=== PATIENT | female | born 1940 | race Caucasian/White ===

== ENCOUNTER → 2016-09-13 | Outpatient (CLI) | payer MEDICARE ==
[~2016-09-13] MED LIST: AZO PO; BAYE325T12 PO; BIMA01SOL OU; CALTTAB10 PO; CENTTAB PO; COUM2.5T11 PO; NAPR500T2 PO; PERCOCET PO; TYLE325T5 PO; VITA500C24 PO
--- NOTE | 2016-09-14 09:03 | REPMRS ---
Patient History The patient states she had a clinical breast exam in 2016. Patient is postmenopausal and has history of cancer in the right breast at age 45. Family history of endometrial cancer in mother at age 70 and breast cancer in maternal half sister. Took hormonal contraceptives for 8 years. Digital Mammo Screening Bilat: September 13, 2016 - Exam #: [id number] Bilateral CC and MLO view(s) were taken. Technologist: Maria Dolores Galicia, Technologist Prior study comparison: September 12, 2015, bilateral digital mammo screening bilat performed at [facility]. September 11, 2014, left breast diagnostic unilateral mammo performed at [facility]. September 10, 2013, bilateral bilat screen digital mammo, performed at [facility] ([facility]). FINDINGS: The breast tissue is almost entirely fat. There has been no change in the appearance of the left breast parenchyma in the interval since the prior examination. No mass, architectural distortion, or microcalcific cluster has developed. No suspicious finding. ASSESSMENT: BI-RADS/ACR category 2 mammogram. Benign finding(s). Recommendation Routine screening mammogram in 1 year. This mammogram was interpreted with the aid of an FDA-approved computer-aided dectection system. Electronically Signed By: Jono Oleary MD 09/13/16 [id number]
== END ==
LOC: M RAD 14:40
PROVIDERS: ATTEND Internal Medicine
DX: Z12.31 Encounter for screening mammogram for malignant neoplasm of breast (principal)

== ENCOUNTER → 2017-09-15 | Outpatient (CLI) | payer MEDICARE | LOC: M RAD 14:27 | DX: Z12.31 Encounter for screening mammogram for malignant neoplasm of breast (principal) | CPT/HCPCS: 77067 ==

== ENCOUNTER 2018-07-19 07:27 | Day surgery (SDC) | payer MEDICARE ==
[2018-07-19] MEDS: ACETYLCHOLINE OPHTH SOLN 1% 2ML (MIOCHOL-E) As Ordered (06:49)
[2018-07-19] MEDS: LIDOCAINE 3.5 % 1ML OPHTH TOPICAL GEL OU (07:00)
[2018-07-19] MEDS: TROPICAMIDE 1% OPHTH SOLN 2ML OD (07:00)
[2018-07-19] MEDS: OFLOXACIN 0.3 % (OCUFLOX) OPTH SOL 5ML OD (07:00)
[2018-07-19] MEDS: CYCLOPENTOLATE 2% OPHTH SOLN 2ML BTL OD (07:00)
[2018-07-19] MEDS: PHENYLEPHRINE 2.5% OPHTH SOL 2ML OD (07:00)
[~2018-07-19 07:27] MED LIST changes: -AZO PO; -BAYE325T12 PO; -BIMA01SOL OU; -CALTTAB10 PO; -CENTTAB PO; -COUM2.5T11 PO; -NAPR500T2 PO; -PERCOCET PO; +PHENYLEPHRINE HCL 10 % OPHTH. SOL 5ML OD; -TYLE325T5 PO; -VITA500C24 PO
[2018-07-19] MEDS: POVIDONE-IODINE 5% OPHTH PREP SOL 30ML As Ordered (11:11)
[2018-07-19] MEDS ORDERED: fentaNYL 100 MCG/2 ML INJECTION (J3010) As Ordered (11:16)
[2018-07-19] MEDS ORDERED: MIDAZOLAM INJ 2 MG/2 ML VIAL (J2250) As Ordered (11:16)
[2018-07-19] MEDS: BSS with VANC/TOB/EPI for EYE CASES IR (11:20)
[2018-07-19] MEDS: HEALON DUET PRO(HEALON 10MG/ML 0.55ML & HEALON ENDOCOAT 30MG/ML 0.85ML) As Ordered ×2 (11:20→11:27)
[2018-07-19] MEDS: CEFUROXIME 1MG/0.1ML INTRACAMERAL INJ As Ordered (11:20)
[2018-07-19] MEDS: LIDOCAINE 1% SDV 5 ML VIAL As Ordered (11:20)
== END 2018-07-19 12:24 | disposition home or self-care (01) ==
LOC: M SDC 07:27
DX: H25.9 Unspecified age-related cataract (principal); H40.811 Glaucoma with increased episcleral venous pressure, right eye; E03.9 Hypothyroidism, unspecified; Z85.3 Personal history of malignant neoplasm of breast; Z92.21 Personal history of antineoplastic chemotherapy; Z79.899 Other long term (current) drug therapy
CPT/HCPCS: 66984

== ENCOUNTER 2018-07-26 06:11 | Day surgery (SDC) | payer MEDICARE ==
[~2018-07-26] VITALS: Ht 162.6 cm; Wt 76.2 kg
[~2018-07-26 06:11] MED LIST changes: +ACETAMINOPHEN 325 MG TAB PO PRN; +ASPI1TAB PO; +AZO PO; +BAYE325T12 PO; +BIMA01SOL OU; +CALTTAB10 PO; +CENTTAB PO; +COUM2.5T17 PO; +ESTR62CR PV; +LEVO25TA5 PO; +NAPR-885 PO; +PERCOCET PO; -PHENYLEPHRINE HCL 10 % OPHTH. SOL 5ML OD; +REST0.05 OU; +TYLE325T5 PO; +VITA500C24 PO
[2018-07-26] MEDS ORDERED: POVIDONE-IODINE 5% OPHTH PREP SOL 30ML As Ordered ONE (06:30)
[2018-07-26] MEDS ORDERED: LIDOCAINE 1% SDV 5 ML VIAL As Ordered ONE (06:31)
[2018-07-26] MEDS ORDERED: ACETYLCHOLINE OPHTH SOLN 1% 2ML (MIOCHOL-E) As Ordered ONE (06:31)
[2018-07-26] MEDS ORDERED: CEFUROXIME 1MG/0.1ML INTRACAMERAL INJ As Ordered ONE (06:32)
[2018-07-26] MEDS ORDERED: HEALON DUET PRO(HEALON 10MG/ML 0.55ML & HEALON ENDOCOAT 30MG/ML 0.85ML) As Ordered ONE ×2 (06:32→08:34)
[2018-07-26] MEDS ORDERED: PHENYLEPHRINE HCL 10 % OPHTH. SOL 5ML OS PRN (07:00)
[2018-07-26] MEDS ORDERED: CYCLOPENTOLATE 2% OPHTH SOLN 2ML BTL OS ONE (07:00)
[2018-07-26] MEDS ORDERED: PHENYLEPHRINE 2.5% OPHTH SOL 2ML OS ONE (07:00)
[2018-07-26] MEDS ORDERED: BSS with VANC/TOB/EPI for EYE CASES IR ONE (07:00)
[2018-07-26] MEDS ORDERED: TROPICAMIDE 1% OPHTH SOLN 2ML OS ONE (07:00)
[2018-07-26] MEDS ORDERED: OFLOXACIN 0.3 % (OCUFLOX) OPTH SOL 5ML OS ONE (07:00)
[2018-07-26] MEDS ORDERED: LIDOCAINE 3.5 % 1ML OPHTH TOPICAL GEL OU ONE (07:00)
[2018-07-26] MEDS ORDERED: PROPARACAINE 0.5% OPHTH SOL 15ML OS PRN (07:01)
[2018-07-26] MEDS ORDERED: fentaNYL 100 MCG/2 ML INJECTION (J3010) As Ordered ONE (07:09)
[2018-07-26] MEDS ORDERED: MIDAZOLAM INJ 2 MG/2 ML VIAL (J2250) As Ordered ONE (07:09)
[2018-07-26] MEDS ORDERED: LIDOCAINE 2% W/EPIN INJ 20ML **PRES FREE As Ordered ONE (07:24)
[2018-07-26] MEDS ORDERED: AcetaZOLAMIDE 500 MG ER CAP As Ordered ONE (09:22)
[2018-07-26 09:30] VITALS: BP 144/70
[2018-07-26] MEDS ORDERED: AcetaZOLAMIDE 500 MG ER CAP PO ONE (09:45)
[2018-07-26] MEDS ORDERED: TRIMETHOBENZAMIDE 300 MG CAP PO PRN (09:45)
[2018-07-26] MEDS ORDERED: KETOROLAC 0.5% OPHTH SOLN OS ONE (09:45)
--- NOTE | 2018-08-22 15:59 | RO ---
DATE OF PROCEDURE: 07/26/2018 PREPROCEDURE DIAGNOSIS: Cataract and glaucoma left eye. POSTPROCEDURE DIAGNOSIS: Cataract and glaucoma left eye. PROCEDURE: Phacoemulsification with intraocular lens implantation along with Optiwave Refractive Analysis (ORA) endocyclophotocoagulation and placement of iStent left eye. SURGEON: Lor Resendez MD SUSTAINABILITY OFFICER: None. ANESTHESIA: COMPLICATIONS: None. DESCRIPTION OF PROCEDURE: The patient was brought to the operating room and laid in supine position. The eye was prepped and draped in a sterile fashion for opthalmic surgery and a lid speculum was placed. A sideport incision was made and EndoCoat was injected into the anterior chamber. Temporal clear corneal incision was then made with a 2.5 mm keratome followed by capsulorrhexis and hydrodissection. Phacoemulsification was then done in divide and conquer method followed by aspiration of the cortical material with the help of irrigation and aspiration cannula. Healon was then placed in the capsular bag anterior chamber, intraocular pressure was checked and was noted to be adequate. ORA calculations were taken, intraocular lens then subsequently placed in the capsular bag [id number], power 18 diopters. Following this, Healon was placed in the ciliary sulcus to visualize the ciliary processes on the video screen with the help of the EndoProbe and endocyclophotocoagulation was done over 280 degrees at 0.26 mV. Good results were noted by the shrinking of the ciliary processes. After this, the patient's head was turned away from the surgeon and microscope towards the surgeon and under high magnification with the help of the Gonio lens the iStent was placed in the left eye in the inferonasal quadrant. Good blood reflex was noted. Following this excess viscoelastic was aspirated. The wound was hydrated. Intracameral cefuroxime was given. No leaks were noted. Lid speculum was removed and patient was returned to the recovery room where postoperative instructions were given.
== END 2018-07-26 09:35 | disposition home or self-care (01) ==
LOC: M SDC 06:11
PROVIDERS: ATTEND Ophthalmology
DX: H26.9 Unspecified cataract (principal); H40.9 Unspecified glaucoma; I50.9 Heart failure, unspecified; E03.9 Hypothyroidism, unspecified; Z86.718 Personal history of other venous thrombosis and embolism; Z92.21 Personal history of antineoplastic chemotherapy; M12.9 Arthropathy, unspecified; Z90.710 Acquired absence of both cervix and uterus; Z78.0 Asymptomatic menopausal state; R06.83 Snoring; Z85.3 Personal history of malignant neoplasm of breast; Z96.643 Presence of artificial hip joint, bilateral; Z88.8 Allergy status to other drugs, medicaments and biological substances; Z79.899 Other long term (current) drug therapy; Z79.82 Long term (current) use of aspirin
CPT/HCPCS: 66183; 66711; 66984; C1783; J2250; J3010; V2632

== ENCOUNTER → 2018-09-18 | Outpatient (CLI) | payer MEDICARE ==
[~2018-09-18] MED LIST changes: -ACETAMINOPHEN 325 MG TAB PO PRN; +ISOVUE-370 76% 100ML VIAL (Q9967) As Ordered ONE
--- NOTE | 2018-09-19 07:24 | REPMRS ---
Patient History The patient states she had a clinical breast exam in October 2017. Family history of breast cancer in maternal half sister, endometrial cancer at age 70 in mother. Took hormonal contraceptives for 8 years. Digital Mammo Screening Bilat: September 18, 2018 - Exam #: [id number] Bilateral CC and MLO view(s) were taken. Technologist: Maria Dolores Galicia, Technologist Prior study comparison: September 15, 2017, bilateral digital mammo screening bilat performed at [facility]. September 13, 2016, bilateral digital mammo screening bilat performed at [facility]. September 12, 2015, bilateral digital mammo screening bilat performed at [facility]. FINDINGS: The breast tissue is almost entirely fat. There has been no change in the appearance of the left breast parenchyma in the interval since the prior examination. No mass, architectural distortion, or microcalcific cluster has developed. No suspicious finding. 3-D tomosynthesis shows no additional findings. Assessment: BI-RADS/ACR category 2 mammogram. Benign Findings. Recommendation Routine screening mammogram of the left breast in 1 year. This mammogram was interpreted with the aid of an FDA-approved computer-aided dectection system. Electronically Signed By: Jono Oleary MD 09/18/18 [id number]
== END ==
LOC: M RAD 10:03
PROVIDERS: ATTEND Internal Medicine
DX: Z12.31 Encounter for screening mammogram for malignant neoplasm of breast (principal)

== ENCOUNTER → 2019-09-24 | Outpatient (CLI) | payer MEDICARE ==
[~2019-09-24] MED LIST changes: -ASPI1TAB PO; +ASPI81TA26 PO; -ISOVUE-370 76% 100ML VIAL (Q9967) As Ordered ONE
--- NOTE | 2019-09-24 17:17 | REPMRS ---
Patient History The patient states she had a clinical breast exam in October 2018.. Family history of breast cancer in maternal half sister, endometrial cancer at age 70 in mother. Took hormonal contraceptives for 8 years. Digital Woman Screen Mammo: September 24, 2019 - Exam #: [id number] Bilateral CC and MLO view(s) were taken. Technologist: Lima Richard, Technologist Prior study comparison: September 18, 2018, bilateral digital mammo screening bilat, performed at [facility]. September 15, 2017, bilateral digital mammo screening bilat, performed at [facility]. September 13, 2016, bilateral digital mammo screening bilat, performed at [facility]. FINDINGS: The breast tissue is almost entirely fat. There has been no change in the appearance of the left breast parenchyma in the interval since the prior examination. No mass, architectural distortion, or microcalcific grouping has developed. No suspicious finding. 3-D tomosynthesis shows no additional findings. Assessment: BI-RADS/ACR category 2 mammogram. Benign Findings. Recommendation Routine screening mammogram of the left breast in 1 year. This mammogram was interpreted with the aid of an FDA-approved computer-aided dectection system. Electronically Signed By: Jono Oleary MD 09/24/19 [id number]
== END ==
LOC: M WHC 15:15
PROVIDERS: ATTEND Internal Medicine
DX: Z12.31 Encounter for screening mammogram for malignant neoplasm of breast (principal); Z85.3 Personal history of malignant neoplasm of breast; Z92.0 Personal history of contraception; Z80.49 Family history of malignant neoplasm of other genital organs

== ENCOUNTER 2019-12-03 11:27 | Emergency (ER) | payer MEDICARE ==
[~2019-12-03] VITALS: Ht 157.5 cm; Wt 67.3 kg
[2019-12-03] MEDS ORDERED: ENAL5TAB (11:36)
[2019-12-03 12:42] LABS: BASO # 0.1 10^3/uL (0.0-0.2); BASO % 0.7 % (0.0-1.0); EOS # 0.4 10^3/uL (0.0-0.5); EOS % 4.6 % (0.0-3.0); HEMATOCRIT 44.9 % (36.0-47.0); HEMOGLOBIN 14.8 g/dl (12.0-15.5); LYMPH # 2.2 10^3/uL (1.5-5.0); LYMPH % 28.5 % (24.0-44.0); MEAN CORPUSCULAR HEMOGLOBIN 31.8 pg (27.0-33.0); MEAN CORPUSCULAR VOLUME 96.4 fl (80.0-96.0); MONO # 0.6 10^3/uL (0.0-0.8); MONO % 7.4 % (0.0-5.0); NEUTROPHILS # 4.5 10^3/uL (1.5-8.5); NEUTROPHILS % 58.5 % (36.0-66.0); PLATELET COUNT, AUTOMATED 254 10^3/uL (150-450); RED BLOOD COUNT 4.66 10^6/uL (4.00-5.40); WHITE BLOOD COUNT 7.7 10^3/uL (4.0-10.0)
[2019-12-03] MEDS ORDERED: ACETAMINOPHEN 325 MG TAB PO ONE (12:45)
[2019-12-03 13:03] LABS: ERYTHROCYTE SEDIMENTATION RATE 16 mm/hr (0-30)
[2019-12-03 13:10] LABS: ALBUMIN 3.9 GM/DL (3.2-5.2); ALT/SGPT 21 U/L (12-78); BILIRUBIN,TOTAL 0.4 MG/DL (0.2-1.0); BLOOD UREA NITROGEN 13 MG/DL (7-18); C REACTIVE PROTEIN QUANTITATIV < 0.30 MG/DL (0.00-0.30); CALCIUM LEVEL 9.7 MG/DL (8.8-10.2); CARBON DIOXIDE LEVEL 27 MEQ/L (21-32); CHLORIDE LEVEL 108 MEQ/L (98-107); CK-MB VALUE MASS 2.2 NG/ML (<3.6); CPK CREATINE PHOSPHOKINASE 86 U/L (26-192); CREATININE FOR GFR 0.79 MG/DL (0.55-1.30); FREE T4 1.15 NG/DL (0.76-1.46); GLOMERULAR FILTRATION RATE > 60.0 (>39); GLUCOSE, FASTING 106 MG/DL (70-100); MB/CK RELATIVE INDEX 2.56 (< OR =4); SODIUM LEVEL 139 MEQ/L (136-145); TOTAL PROTEIN 7.6 GM/DL (6.4-8.2); TROPONIN I < 0.02 NG/ML (< 0.10)
[2019-12-03 13:35] VITALS: BP 165/84
--- NOTE | 2019-12-03 13:52 | REP ---
REASON FOR EXAM: Atraumatic headache. PRIORS: None. TECHNIQUE: 4.5 mm contiguous transaxial sections were obtained from the skull base to the cerebral convexities with thin cuts through the posterior fossa without the administration of intravenous contrast. FINDINGS: The ventricles and sulci are consistent with the patient's age. There are no extra-axial fluid collections. There is no mass effect. The deep cerebral white matter is consistent with the patient's age. The orbital and petrous structures , cerebellopontine angles, and posterior fossa are unremarkable. The sella turcica, cavernous, and paracavernous structures are essentially unremarkable. The visualized portions of the paranasal sinuses and mastoid air cells are clear. Images of the skull base show no gross abnormality. IMPRESSION: Essentially unremarkable CT examination of the brain. Electronically Signed by Baldomero Larson DO 12/03/2019 03:19 P
--- NOTE | 2019-12-03 14:01 | REP ---
CT CERVICAL SPINE WITHOUT CONTRAST: CT cervical spine performed without IV contrast. Sagittal and coronal reconstruction images are performed. There is no compression fracture. There is normal alignment. There is no prevertebral soft tissue swelling. There is moderate spurring of C4 through C7. There is mild disc space narrowing at C4-5. There is moderate narrowing at C5-6, C6-7 and C7-T1. There is vacuum phenomenon noted in the inferior endplate of C6 as well as C7. There is mild posterior osteophytic ridging and disc bulging at C5-6, C6-7 and C7-T1. Diffuse facet spurring is noted more so on the left. Mild to moderate foraminal narrowing on the right at C5-6, bilaterally at C6-7, also on the right at C7-T1. IMPRESSION: Significant degenerative changes particularly at C5-6 and C6-7, as well as C7-T1. No acute fracture or dislocation. Electronically Signed by Lake Townsend MD 12/03/2019 03:21 P
--- NOTE | 2019-12-03 19:08 | ECGEPIP ---
[facility] - ED Test Date: 2019-12-03 Pat Name: ABDULKADIR ARNOLD Department: Room: - Gender: Female Sew On Operator: YVONNE : 1940 Requested By: GABRIELLA Batista PA-C Order Number: [id number] Reading MD: Allison Valladares Measurements Intervals [place] Rate: 72 P: 61 NC: 235 QRS: 22 QRSD: 102 T: 48 QT: 383 QTc: 421 Interpretive Statements SINUS RHYTHM WITH FIRST DEGREE AV BLOCK NONSPECIFIC T-WAVE ABNORMALITY NO PRIOR Electronically Signed on 12-03-2019 19:08:28 EDT by Allison Valladares
== END 2019-12-03 13:36 | disposition home or self-care (01) ==
LOC: M ED 11:27
DX: R51 Headache (principal); S16.1XXA Strain of muscle, fascia and tendon at neck level, initial encounter; X58.XXXA Exposure to other specified factors, initial encounter; Y92.89 Other specified places as the place of occurrence of the external cause; I10 Essential (primary) hypertension; E11.9 Type 2 diabetes mellitus without complications; E03.9 Hypothyroidism, unspecified; Z90.12 Acquired absence of left breast and nipple; Z96.643 Presence of artificial hip joint, bilateral; Z88.8 Allergy status to other drugs, medicaments and biological substances; Z88.1 Allergy status to other antibiotic agents; Z79.899 Other long term (current) drug therapy; Z79.82 Long term (current) use of aspirin; Z79.890 Hormone replacement therapy

== ENCOUNTER 2020-06-21 12:07 | Emergency (ER) | payer MEDICARE ==
[~2020-06-21] VITALS: Ht 157.5 cm; Wt 66.8 kg
[~2020-06-21 12:07] MED LIST changes: +ENAL5TA
[2020-06-21] MEDS ORDERED: SILVER NITRATE APPLICATOR TOP ONE (13:00)
[2020-06-21] MEDS ORDERED: LIDOCAINE 4% TOPICAL SOLN 50 ML BTL TOP ONE (13:15)
[2020-06-21] MEDS ORDERED: OXYMETAZOLINE 0.05% NASAL SPRAY (AFRIN) ONE (13:15)
[2020-06-21 13:36] LABS: BASO # 0.1 10^3/uL (0.0-0.2); BASO % 0.7 % (0.0-1.0); EOS # 0.4 10^3/uL (0.0-0.5); EOS % 4.1 % (0.0-3.0); HEMATOCRIT 42.6 % (36.0-47.0); HEMOGLOBIN 14.1 g/dl (12.0-15.5); LYMPH # 1.7 10^3/uL (1.5-5.0); LYMPH % 19.6 % (24.0-44.0); MEAN CORPUSCULAR HGB CONC 33.1 g/dl (32.0-36.5); MEAN CORPUSCULAR VOLUME 96.8 fl (80.0-96.0); MONO # 0.7 10^3/uL (0.0-0.8); MONO % 7.8 % (0.0-5.0); NEUTROPHILS % 67.5 % (36.0-66.0); PLATELET COUNT, AUTOMATED 268 10^3/uL (150-450); WHITE BLOOD COUNT 8.9 10^3/uL (4.0-10.0)
[2020-06-21 13:53] LABS: INR 0.99; PROTHROMBIN TIME 13.3 SECONDS (12.5-14.3)
[2020-06-21 13:54] LABS: PARTIAL THROMBOPLASTIN TIME 28.6 SECONDS (24.2-38.5)
[2020-06-21 13:56] LABS: ALBUMIN 3.5 GM/DL (3.2-5.2); BILIRUBIN,DIRECT 0.1 MG/DL (0.0-0.2); BILIRUBIN,TOTAL 0.4 MG/DL (0.2-1.0); TOTAL PROTEIN 7.2 GM/DL (6.4-8.2)
[2020-06-21 14:26] VITALS: BP 158/68
== END 2020-06-21 14:33 | disposition home or self-care (01) ==
LOC: M ED 12:07
DX: R04.0 Epistaxis (principal); E03.9 Hypothyroidism, unspecified; M54.5 Low back pain; I10 Essential (primary) hypertension; Z85.3 Personal history of malignant neoplasm of breast; Z90.10 Acquired absence of unspecified breast and nipple; Z90.79 Acquired absence of other genital organ(s); Z88.8 Allergy status to other drugs, medicaments and biological substances; Z79.899 Other long term (current) drug therapy

== ENCOUNTER 2020-06-23 11:55 | Emergency (ER) | payer MEDICARE ==
[~2020-06-23] VITALS: Ht 157.5 cm; Wt 67.0 kg
[2020-06-23] MEDS ORDERED: PHENYLEPHRINE 0.25% NASAL SPR 15 ML ONE (13:15)
[2020-06-23] MEDS ORDERED: AFRI0.058 (13:20)
[2020-06-23 13:27] VITALS: BP 119/59
== END 2020-06-23 13:35 | disposition home or self-care (01) ==
LOC: M ED 11:55
DX: R04.0 Epistaxis (principal); E03.9 Hypothyroidism, unspecified; M54.5 Low back pain; I10 Essential (primary) hypertension; Z85.3 Personal history of malignant neoplasm of breast; Z90.10 Acquired absence of unspecified breast and nipple; Z90.79 Acquired absence of other genital organ(s); Z88.8 Allergy status to other drugs, medicaments and biological substances; Z79.899 Other long term (current) drug therapy

== ENCOUNTER → 2020-11-18 | Outpatient (CLI) | payer MEDICARE ==
[~2020-11-18] MED LIST changes: +AFRI0.058
--- NOTE | 2020-11-18 14:56 | REPMRS ---
Patient History The patient states she has not had a clinical breast exam in over a year. Family history of breast cancer in maternal half sister, endometrial cancer at age 70 in mother. Took hormonal contraceptives for 8 years. 3D TOMOSYNTHESIS WAS PERFORMED. [place] breast density b. Digital Woman Screen Mammo: November 18, 2020 - Exam #: [id number] CC and MLO view(s) were taken of the left breast. Technologist: Lima Richard, Technologist Prior study comparison: September 24, 2019, bilateral digital woman screen mammo performed at [facility]. September 18, 2018, bilateral digital mammo screening bilat, performed at [facility]. FINDINGS: There are scattered fibroglandular densities. There has been no change in the appearance of the mammogram from the prior studies. There is a mild amount of residual fibroglandular tissue. There is no interval development of dominant mass, architectural distortion, or clustered microcalcification suggestive of malignancy. No significant changes when compared with prior studies. Assessment: BI-RADS/ACR category 1 mammogram. Negative Mammogram. Recommendation Routine screening mammogram in 1 year (for women over age 40). This mammogram was interpreted with the aid of an FDA-approved computer-aided dectection system. Electronically Signed By: Lake Townsend MD 11/18/20 [id number]
== END ==
LOC: M WHC 14:10
PROVIDERS: ATTEND Internal Medicine
DX: Z12.31 Encounter for screening mammogram for malignant neoplasm of breast (principal); Z80.3 Family history of malignant neoplasm of breast; R92.2 Inconclusive mammogram

== ENCOUNTER → 2021-12-14 | Outpatient (CLI) | payer MEDICARE | LOC: M WHC 15:02 | PROVIDERS: ATTEND Internal Medicine | DX: Z12.31 Encounter for screening mammogram for malignant neoplasm of breast (principal); Z80.3 Family history of malignant neoplasm of breast; Z80.49 Family history of malignant neoplasm of other genital organs ==

== ENCOUNTER 2022-09-06 15:44 | Emergency (ER) | payer MEDICARE ==
[~2022-09-06] VITALS: Ht 157.5 cm; Wt 66.8 kg
[~2022-09-06 15:44] MED LIST changes: -AFRI0.058; +OXYM15SP2
[2022-09-06 15:45] VITALS: BP 174/82
[2022-09-06] MEDS ORDERED: OMEGCAP4 PO (16:22)
[2022-09-06] MEDS ORDERED: CALCCAP4 PO (16:22)
[2022-09-06] MEDS ORDERED: VITA500C24 PO (16:22)
[2022-09-06] MEDS ORDERED: ODOR100T3 PO (16:22)
[2022-09-06] MEDS ORDERED: LOSA25TA13 (16:22)
[2022-09-06] MEDS ORDERED: VITMTA PO (16:22)
[2022-09-06] MEDS ORDERED: AZO1CAP PO (16:22)
[2022-09-06] MEDS ORDERED: ASPI81CH33 PO (16:22)
== END 2022-09-06 18:27 | disposition left against medical advice (07) ==
LOC: M ED 15:44
DX: Z53.21 Procedure and treatment not carried out due to patient leaving prior to being seen by health care provider (principal)

== ENCOUNTER → 2022-12-16 | Outpatient (CLI) | payer MEDICARE ==
[~2022-12-16] MED LIST changes: +ASPI81CH33 PO; +AZO1CAP PO; +CALCCAP4 PO; +ENAL1TAB48; -ENAL5TA; +LOSA25TA13; +ODOR100T3 PO; +OMEGCAP4 PO; +VITMTA PO
== END ==
LOC: M WHC 13:01
PROVIDERS: ATTEND Internal Medicine
DX: Z12.31 Encounter for screening mammogram for malignant neoplasm of breast (principal); Z85.3 Personal history of malignant neoplasm of breast; Z90.11 Acquired absence of right breast and nipple

== ENCOUNTER → 2023-12-19 | Outpatient (CLI) | payer MEDICARE | LOC: M WHC 13:19 | PROVIDERS: ATTEND Internal Medicine | DX: Z12.31 Encounter for screening mammogram for malignant neoplasm of breast (principal) ==

== ENCOUNTER 2024-02-12 09:12 | Emergency (ER) | payer MEDICARE ==
[~2024-02-12] VITALS: Ht 157.5 cm; Wt 60.0 kg
[2024-02-12] MEDS: FOSFOMYCIN TROMETHAMINE 3 GM POWDER PACKET (MONUROL) PO ONE (12:32)
[2024-02-12 12:54] VITALS: BP 137/98; TEMP 97.8; O2SAT 97
== END 2024-02-12 13:13 | disposition home or self-care (01) ==
LOC: M ED 09:12
DX: N30.01 Acute cystitis with hematuria (principal); Z96.0 Presence of urogenital implants; I10 Essential (primary) hypertension; Z85.3 Personal history of malignant neoplasm of breast; H40.9 Unspecified glaucoma; Z79.890 Hormone replacement therapy; Z79.82 Long term (current) use of aspirin; Z79.899 Other long term (current) drug therapy; Z88.8 Allergy status to other drugs, medicaments and biological substances

== ENCOUNTER → 2024-05-25 | Outpatient (CLI) | payer MEDICARE | LOC: M RAD 13:44 | PROVIDERS: ATTEND Specialist | DX: N28.1 Cyst of kidney, acquired (principal) ==

== ENCOUNTER → 2024-08-27 | Outpatient (REF) | payer MEDICARE ==
[~2024-08-27] MED LIST changes: -BAYE325T12 PO; +BAYE325T2 PO; +CENT1TAB PO; +ESTR0.1C5 VG; -LOSA25TA13; +LOSA25TA13 PO; +OMEG12003 PO; +OXYB-54 PO
[2024-08-27 18:52] LABS: APPEARANCE, URINE CLOUDY (CLEAR); BACTERIA, URINE AUTO 2+ (NEGATIVE); BILIRUBIN, URINE AUTO NEGATIVE (NEGATIVE); BLOOD, URINE BLOOD 1+ (NEGATIVE); COLOR, URINE YELLOW (YELLOW); GLUCOSE, URINE (UA) AUTO NEGATIVE (NEGATIVE); KETONE, URINE AUTO NEGATIVE (NEGATIVE); LEUKOCYTE ESTERASE, URINE AUTO 3+ (NEGATIVE); MUCUS, URINE SMALL (NEGATIVE); NITRITE, URINE AUTO NEGATIVE (NEGATIVE); PROTEIN, URINE AUTO 1+ mg/dL (NEGATIVE); RBC, URINE AUTO 9 /HPF (0-3); SPECIFIC GRAVITY URINE AUTO 1.009 (1.002-1.035); SQUAMOUS EPITHELIAL CELL UR AU 3 /HPF (0-6); UROBILINOGEN, URINE AUTO 0.2 mg/dL (0.0-2.0); WBC, URINE AUTO TNTC /HPF (0-3)
== END ==
LOC: M LAB REF 16:12
PROVIDERS: ATTEND Internal Medicine
DX: Z01.818 Encounter for other preprocedural examination (principal); N39.0 Urinary tract infection, site not specified

== ENCOUNTER 2024-09-04 06:24 | Day surgery (SDC) | payer MEDICARE ==
[~2024-09-04] VITALS: Ht 157.5 cm; Wt 59.1 kg
[2024-09-04] MEDS ORDERED: ONDANSETRON 4MG 2ML VIAL As Ordered ONE (07:05)
[2024-09-04] MEDS ORDERED: METOCLOPRAMIDE INJ 10MG/2ML VIAL As Ordered ONE (07:05)
[2024-09-04] MEDS ORDERED: propofoL 200 MG/20 ML VIAL As Ordered ONE (07:09)
[2024-09-04] MEDS ORDERED: LIDOCAINE 2% 100MG/5ML SDV (FOR ANES.) As Ordered ONE (07:09)
[2024-09-04] MEDS ORDERED: fentaNYL 100 MCG/2 ML INJECTION As Ordered ONE (07:12)
[2024-09-04] MEDS: METHYLENE BLUE 0.5% (5MG/ML) 10 ML AMP (PROVAYBLUE) As Ordered ONE (07:24)
[2024-09-04] MEDS: LR 1,000 ML IV SCH (07:26)
[2024-09-04] MEDS: ceFAZolin SOD 2 GM in IV 1 EA IV ONE (08:00)
[2024-09-04] MEDS ORDERED: GLYCOPYRROLATE INJ 0.2 MG/ML 2 ML VIAL As Ordered ONE (08:22)
[2024-09-04] MEDS: GENTAMICIN SULF 80MG/2ML VIAL As Ordered ONE (08:34)
[2024-09-04] MEDS: FLUORESCEIN 10% (100MG/ML) 5ML VIAL As Ordered ONE (09:08)
[2024-09-04] MEDS: ESTROGENS VAGINAL CREAM 30GM As Ordered ONE (09:26)
[2024-09-04] MEDS ORDERED: fentaNYL 100 MCG/2 ML INJECTION IV PRN (09:40)
[2024-09-04] MEDS: oxyCODONE 5MG TAB PO PRN (10:01)
[2024-09-04] MEDS: ONDANSETRON 4MG 2ML VIAL IV PRN (10:03)
[2024-09-04] MEDS: HYDROMORPHONE HCL 0.5 MG/ 0.5 ML SYRINGE IV PRN (10:13)
[2024-09-04 18:20] VITALS: BP 142/83; TEMP 97.8; O2SAT 98
== END 2024-09-04 19:27 | disposition home or self-care (01) ==
LOC: M SDC 06:24
PROVIDERS: ATTEND Specialist
DX: N81.2 Incomplete uterovaginal prolapse (principal); R32 Unspecified urinary incontinence; I10 Essential (primary) hypertension; Z90.710 Acquired absence of both cervix and uterus; Z98.51 Tubal ligation status; E03.9 Hypothyroidism, unspecified; N28.1 Cyst of kidney, acquired; Z79.899 Other long term (current) drug therapy; Z79.890 Hormone replacement therapy; Z86.718 Personal history of other venous thrombosis and embolism; Z88.8 Allergy status to other drugs, medicaments and biological substances; Z88.1 Allergy status to other antibiotic agents; Z85.3 Personal history of malignant neoplasm of breast; Z92.21 Personal history of antineoplastic chemotherapy
CPT/HCPCS: 57240; 57282; 93005; C1762; J0665; J0690; J1171; J1580; J1596; J2405; J2765; J3010; Q9968